=== PATIENT | male | born 1990 | race Caucasian/White ===

== ENCOUNTER 2021-02-12 12:25 | Emergency (ER) | payer OTHER ==
--- NOTE | 2021-02-12 13:46 | ED Physician Documentation ---
History of Present Illness - Stated complaint Stated Complaint: RIGHT EYE SWELLING & PX - Chief complaint Chief Complaint: Heent - History obtained from History obtained from: Patient - History of Present Illness Timing: How many days ago (2) - Additonal information Additional information: Patient is a 30-year-old male who noted swelling to the right upper eyelid starting 2 days ago. Has continued since that time. Denies any trauma. Does not wear contacts. Nothing makes it better or worse. No vision changes. No conjunctival injection, tearing or drainage. No FB. Review of Systems Constitutional: denies: Fever, Chills GI: denies: Vomiting PD PAST MEDICAL HISTORY - Past Medical History Past Medical History: No Cardiovascular: None Respiratory: None Neuro: None Endocrine/Autoimmune: None GI: None : None HEENT: None Psych: None Musculoskeletal: None Derm: None - Past Surgical History Past Surgical History: Yes Ortho: Other HEENT: Rhinoplasty - Present Medications Home Medications: Ambulatory Orders Medication Instructions Recorded Confirmed No Known Home Medications 02/12/21 02/12/21 - Allergies Allergies/Adverse Reactions: Allergies Allergy/AdvReac Type Severity Reaction Status Date / Time No Known Drug Allergies Allergy Verified 02/12/21 12:32 - Social History Does the pt smoke?: Yes Smoking Status: Current every day smoker Does the pt drink ETOH?: No Does the pt have substance abuse?: No PD ED PE NORMAL - Vitals Vital signs reviewed: Yes - General General: Alert and oriented X 3, No acute distress - HEENT HEENT: Moist mucous membranes, Other (L upper eyelid, mild swelling and erythema. o/w normal exam. ) - Derm Derm: Warm and dry - Neuro Neuro: Alert and oriented X 3 Results - Vitals Vitals: Vital Signs - 24 hr 02/12/21 12:28 Temperature 36.2 C L Heart Rate 68 Respiratory 16 Rate Blood Pressure 128/64 O2 Saturation 97 Oxygen O2 Source Room air PD MEDICAL DECISION MAKING - ED course Complexity details: considered differential, d/w patient ED course: Patient with a small stye. Will apply warm compresses at home and follow-up with his doctor as needed. No indication for antibiotics at this time. Patient counseled regarding signs and symptoms for which I believe and urgent re- evaluation would be necessary. Patient with good understanding of and agreement to plan and is comfortable going home at this time This document was made in part using voice recognition software. While efforts are made to proofread this document, sound alike and grammatical errors may occur. Departure - Departure Disposition: 01 Home, Self Care Clinical Impression: Stye Qualifiers: Laterality: right Eyelid: upper Qualified Code(s): H00.011 - Hordeolum externum right upper eyelid Condition: Good Instructions: ED Hordeolum Follow-Up: your,doctor as needed [Other] Comments: Please apply warm compresses 3-4 times daily for about 10 minutes at a time to your eyelid. This will help the lesion to drain. Gentle massage may help as well. Return if you worsen. This should improve over the next few days.
[2021-02-12 13:53] VITALS: BP 122/74
== END 2021-02-12 13:53 | disposition home or self-care (01) ==
LOC: ED 12:25
DX: H00.011 Hordeolum externum right upper eyelid (principal); F17.200 Nicotine dependence, unspecified, uncomplicated
CPT/HCPCS: 99281

== ENCOUNTER 2022-07-02 13:11 | Emergency (ER) | payer OTHER ==
[2022-07-02 13:25] VITALS: BP 148/90
--- NOTE | 2022-07-02 13:52 | XRAY Report ---
PROCEDURE: Chest 2 View X-Ray INDICATIONS: cough TECHNIQUE: 2 views of the chest were acquired. COMPARISON: 02/16/2022 FINDINGS: Surgical changes and devices: None. Lungs and pleura: No pleural effusions or pneumothorax. Lungs are clear. Mediastinum: Mediastinal contours are normal. Heart size is normal. Bones and chest wall: No suspicious bony abnormalities. Soft tissues appear unremarkable. IMPRESSION: Normal two-view chest x-ray Reviewed by: Patrice Cisneros MD on 07/02/2022 12:50 PM [facility] Approved by: Patrice Cisneros MD on 07/02/2022 12:50 PM [facility] Station ID: [id number]
[2022-07-02] MEDS ORDERED: ONDANSETRON ODT 4 MG TABLET TL STA (14:55)
--- NOTE | 2022-07-02 15:17 | ED Physician Documentation ---
History of Present Illness - Stated complaint Stated Complaint: COUGHING/CONGESTION - Chief complaint Chief Complaint: Resp - History obtained from History obtained from: Patient - Additonal information Additional information: The patient comes to the emergency department chief complaint of headache, sore throat, nasal congestion, chills, and cough over the last 2-1/2 weeks. He states he was initially ill but then seemed like he was getting better. However, he had a resurgence of symptoms several days ago and states he is concerned because he has missed some at work. He states that he is now also nauseated and vomiting. The patient has tested negative for COVID prior to coming in. He denies any specific sick contacts, but does work with other people and has been out in public. He states he is otherwise healthy. No other complaints at this time. Review of Systems Constitutional: reports: Reviewed and negative Eyes: reports: Reviewed and negative Ears: reports: Reviewed and negative Nose: reports: Rhinorrhea / runny nose, Congestion Throat: reports: Sore throat Cardiac: reports: Reviewed and negative Respiratory: reports: Cough. denies: Dyspnea GI: reports: Nausea, Vomiting : reports: Reviewed and negative Skin: reports: Reviewed and negative Musculoskeletal: reports: Reviewed and negative Neurologic: reports: Headache Psychiatric: reports: Reviewed and negative Endocrine: reports: Reviewed and negative Immunocompromised: reports: Reviewed and negative PD PAST MEDICAL HISTORY - Past Medical History Cardiovascular: None Respiratory: None Neuro: None Endocrine/Autoimmune: None GI: None : None HEENT: None Psych: None Musculoskeletal: None Derm: None - Past Surgical History Past Surgical History: Yes Ortho: Other HEENT: Rhinoplasty - Present Medications Home Medications: Ambulatory Orders Medication Instructions Recorded Confirmed Acetaminophen/Cod 300/30 [Tylenol 2 each PO Q4-6H PRN #20 tablet 07/02/22 #3] Ondansetron Odt [Zofran] 4 mg TL Q6H PRN #14 tablet 07/02/22 - Allergies Allergies/Adverse Reactions: Allergies Allergy/AdvReac Type Severity Reaction Status Date / Time No Known Drug Allergies Allergy Verified 02/16/22 13:16 - Social History Does the pt smoke?: Yes Smoking Status: Current every day smoker Does the pt drink ETOH?: No Does the pt have substance abuse?: No PD ED PE NORMAL - Vitals Vital signs reviewed: Yes - General General: Alert and oriented X 3, No acute distress, Well developed/nourished - HEENT HEENT: Atraumatic, PERRL, EOMI, Moist mucous membranes, Pharynx benign - Neck Neck: Supple, no meningeal sign - Cardiac Cardiac: RRR, No murmur, Strong equal pulses - Respiratory Respiratory: No respiratory distress, Clear bilaterally - Abdomen Abdomen: Soft, Non tender, Non distended - Derm Derm: Normal color, Warm and dry, No rash - Extremities Extremities: No deformity, No edema, No calf tenderness / cord - Neuro Neuro: Alert and oriented X 3, 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 parapertussis DNA (PCR) NOT DETECTED Nasal Coronavir 229E PCR NOT DETECTED Nasal Coronavir HKU1 PCR NOT DETECTED Nasal Coronavir NL63 PCR NOT DETECTED Nasal Coronavir OC43 PCR NOT DETECTED Nasal Enterovir/Rhinovir PCR NOT DETECTED Nasal Influenza B PCR NOT DETECTED Nasal Influenza A PCR NOT DETECTED Nasal Parainfluen 1 PCR NOT DETECTED Nasal Parainfluen 2 PCR NOT DETECTED Nasal Parainfluen 3 PCR NOT DETECTED Nasal Parainfluen 4 PCR NOT DETECTED Nasal RSV (PCR) NOT DETECTED Nasal B.pertussis DNA PCR NOT DETECTED Nasal C.pneumoniae (PCR) NOT DETECTED Le[place] Human Metapneumo PCR NOT DETECTED Nasal M.pneumoniae (PCR) NOT DETECTED Nasal SARS-CoV-2 (PCR) NOT DETECTED - Rads (name of study) Chest x-ray Radiology: Final report received, See rad report (Negative) PD Medical Decision Making - ED course Complexity details: reviewed results, re-evaluated patient, considered differential, d/w patient ED course: The patient overall looked fairly well, and I discussed symptomatic management with him. The patient has a clear chest x-ray and exam is unremarkable, and I suspect a viral syndrome. He has been given a dose of ODT Zofran. I have sent prescriptions for both Zofran and Tylenol 3 to the pharmacy of his choice. A respiratory PCR has been obtained and is pending at this time. Departure - Departure Disposition: 01 Home, Self Care Clinical Impression: Acute viral syndrome Condition: Stable Instructions: ED Viral Syndrome Prescriptions: Acetaminophen/Cod 300/30 [Tylenol #3] 2 each PO Q4-6H PRN #20 tablet PRN Reason: Pain Ondansetron Odt [Zofran] 4 mg TL Q6H PRN #14 tablet PRN Reason: Nausea / Vomiting Comments: Your chest x-ray looks good today. Your symptoms are consistent with one of the many viral illnesses that are going around right now. It is likely that you started with some other virus, and once knocked down from being sick at that, picked up something else. Your heart sounds good and your lungs are clear. Your throat does not have the appearance of strep. Your vital signs look good and there is no evidence of a more serious illness, despite the misery that your current illness is causing you. A prescription for medication for nausea and for both the pain and cough has been electronically transmitted to [facility] pharmacy in [place]. The Tylenol with codeine can be taken for either your cough or your neck pain, and you can also take ibuprofen 600 mg every 6 hours. Please drink plenty of fluids and stay home this week to allow yourself to rest. Forms: Activity restrictions Discharge Date/Time: 07/02/22 15:29
[2022-07-02 15:37] LABS: B. PARAPERTUSSIS- RESP PCR PAN NOT DETECTED; B. PERTUSSIS- RESP PCR PANEL NOT DETECTED; C. PNEUMONIAE- RESP PCR PANEL NOT DETECTED; CORONAVIRUS 229E-RESP PCR NOT DETECTED; CORONAVIRUS HKU1-RESP PCR NOT DETECTED; CORONAVIRUS NL63-RESP PCR NOT DETECTED; CORONAVIRUS OC43-RESP PCR NOT DETECTED; HUMAN METAPNEUMOVIRUS NOT DETECTED; INFLUENZA A- RESP PCR PANEL NOT DETECTED; INFLUENZA B - RESP PCR PANEL NOT DETECTED; M. PNEUMONIAE- RESP PCR PANEL NOT DETECTED; PARAINFLUENZA VIRUS 1 NOT DETECTED; PARAINFLUENZA VIRUS 2 NOT DETECTED; PARAINFLUENZA VIRUS 3 NOT DETECTED; PARAINFLUENZA VIRUS 4 NOT DETECTED; RHINOVIRUS/ENTEROVIRUS NOT DETECTED; RSV- RESP PCR PANEL NOT DETECTED; SARS-CoV-2 -RESP PCR PANEL NOT DETECTED
== END 2022-07-02 15:29 | disposition home or self-care (01) ==
LOC: ED 13:11
DX: B34.9 Viral infection, unspecified (principal); F17.200 Nicotine dependence, unspecified, uncomplicated; Z20.822 Contact with and (suspected) exposure to COVID-19
CPT/HCPCS: 71046; 87633; 99283; 99284; Q0162

== ENCOUNTER 2022-11-18 13:10 | Emergency (ER) | payer OTHER ==
[2022-11-18] MEDS ORDERED: HYDROmorphone 1 MG/ML CARPUJECT IM STA (14:20)
[2022-11-18] MEDS ORDERED: KETOROLAC 60 MG/2 ML VIAL IM STA (14:20)
--- NOTE | 2022-11-18 14:21 | ED Physician Documentation ---
History of Present Illness - Stated complaint Stated Complaint: RT SIDE PX - Chief complaint Chief Complaint: General - History obtained from History obtained from: Patient - Additonal information Additional information: 32-year-old gentleman with history of asthma, otherwise healthy. He was carrying a large box today and slipped and fell backwards and the box fell on his right side injuring his low lateral right ribs, mid back and right hip. No head or neck injury. He is able to walk and bear weight albeit gingerly. Has not tried anything yet for pain. This happened around 9 AM today. PD PAST MEDICAL HISTORY - Past Medical History Cardiovascular: None Respiratory: None Neuro: None Endocrine/Autoimmune: None GI: None : None HEENT: None Psych: None Musculoskeletal: None Derm: None - Past Surgical History Past Surgical History: Yes Ortho: Other HEENT: Rhinoplasty - Present Medications Home Medications: Ambulatory Orders Medication Instructions Recorded Confirmed HYDROcod/ACETAM 5/325 [Allison 5/325] 1 - 2 tab PO Q6H PRN #15 tablet 11/18/22 Ibuprofen [Motrin] 800 mg PO Q8H PRN #30 tablet 11/18/22 - Allergies Allergies/Adverse Reactions: Allergies Allergy/AdvReac Type Severity Reaction Status Date / Time No Known Drug Allergies Allergy Verified 07/22/22 09:26 - Social History Does the pt smoke?: Yes Smoking Status: Current every day smoker Does the pt drink ETOH?: No Does the pt have substance abuse?: No - Immunizations Immunizations are current?: Yes PD ED PE NORMAL - Vitals Vital signs reviewed: Yes - General General: Alert and oriented X 3, No acute distress - Neck Neck: Supple, no meningeal sign, No bony TTP - Respiratory Respiratory: No respiratory distress, Other (Mild tenderness of right lower lateral ribs, no corresponding abdominal tenderness.) - Back Back: Other (Tender to the lower lumbar spine) - Derm Derm: Normal color, Warm and dry - Extremities Extremities: Other (Moderate tenderness of the right hip, no deformity.) - Neuro Neuro: Alert and oriented X 3, Normal speech Results - Vitals Vitals: Vital Signs - 24 hr 11/18/22 11/18/22 13:15 16:36 Temperature 36.4 C L 36.8 C Heart Rate 66 53 L Respiratory 18 20 Rate Blood Pressure 127/94 H 111/57 L O2 Saturation 98 99 Oxygen O2 Source Room air - Rads (name of study) Right hip x-ray, chest CT without contrast, and lumbar spine CT were negative for traumatic findings. Relevant Findings:: Final report received, EMP independent interpretation of test PD Medical Decision Making - ED course ED course: 32-year-old gentleman had a fall with a large box landing on him and has hip, back, and right rib pain. Relevant imaging was negative. After the administration of 1 mg of IM Hydromorphone and 60 mg of IM Toradol his pain was controlled, not gone but he was satisfied with the pain relief. Departure - Departure Disposition: Home, Self Care Clinical Impression: Chest wall contusion Qualifiers: Encounter type: initial encounter Laterality: right Qualified Code(s): S20.211A - Contusion of right front wall of thorax, initial encounter Back strain Qualifiers: Encounter type: initial encounter Qualified Code(s): S39.012A - Strain of muscle, fascia and tendon of lower back, initial encounter Contusion of right hip Qualifiers: Encounter type: initial encounter Qualified Code(s): S70.01XA - Contusion of right hip, initial encounter Condition: Good Instructions: ED Low Back Pain Injury, ED Contusion Soft Tissue, ED Contusion Chest Wall Prescriptions: Ibuprofen [Motrin] 800 mg PO Q8H PRN #30 tablet PRN Reason: PAIN &/OR FEVER HYDROcod/ACETAM 5/325 [Allison 5/325] 1 - 2 tab PO Q6H PRN #15 tablet PRN Reason: Pain Comments: [facility] [place]. Right hip x-ray, lumbar spine CT and CT of the ribs and chest were negative for serious injuries. That said I do expect you to be fairly sore for the next few days and improving after that. Heat and gentle stretching would be appropriate as well. Return if worse. Follow-up with your doctor in about a week for recheck. I am prescribing a short course of narcotic pain medication for you. These are potentially dangerous and addictive medications that should be used carefully. These medications may constipate you. Take an [id number] stool softener (docusate) twice daily with plenty of water while taking these medications. If you go 24 hours without a bowel movement, take [id number]-nys-[id number] miralax, per package instructions. Do not drink or drive while taking these medications. If you received narcotic or sedating medications while in the emergency department, do not drive for 24 hours. Store this medication in a safe, secure place and out of reach of children. It is a violation of federal law to give or sell this medication to another person or to use in a manner other than prescribed. The ED will not refill narcotic prescriptions, including prescriptions lost or stolen. To dispose of unwanted medications: 1. [facility] at [address] in [place] has a medication drop box. They accept prescription medications (in pill form) Sunday through Sunday 9:00 a.m. to 5:00 p.m. 2. The [facility] [employer] accepts prescription medications (in pill form only) for disposal year round. Call for more information. 3. Contact the [facility] for the next [facility] sponsored prescription drug collection event. , [phone], or [phone]; Note that many narcotic pain relievers also contain Tylenol/acetaminophen. Please ensure that your total dose of acetaminophen from all sources does not exceed 3 g (3000 mg) per day. Discharge Date/Time: 11/18/22 16:36
--- NOTE | 2022-11-18 14:47 | XRAY Report ---
PROCEDURE: Hip w/Pelvis 2-3V RT INDICATIONS: FALL, CHEST, BACK, HIP INJ TECHNIQUE: AP pelvis with lateral view(s) of the right hip(s). COMPARISON: None. FINDINGS: Bones: No fractures or dislocations. No suspicious bony lesions. Soft tissues: No suspicious soft tissue calcifications or masses. IMPRESSION: No pelvic or hip fractures visible. Reviewed by: Charlee Sexton MD on 11/18/2022 1:46 PM [facility] Approved by: Charlee Sexton MD on 11/18/2022 1:46 PM [facility] Station ID: [id number]
--- NOTE | 2022-11-18 16:17 | CT Report ---
PROCEDURE: CHEST WO INDICATIONS: FALL, CHEST, BACK, HIP INJ TECHNIQUE: Noncontrast 1mm axial images were acquired from the pulmonary apices to the posterior costophrenic an gles. Axial 5 mm soft tissue kernel reconstructions were performed as well as 8 mm axial MIP and cor onal and sagittal 5 mm reformations. For radiation dose reduction, the following was used: automate d exposure control, adjustment of mA and/or kV according to patient size. COMPARISON: Chest x-ray 07/02/2022 FINDINGS: Image quality: Excellent. Lungs and pleura: Central and peripheral airways are patent. No pneumothorax or pleural effusion. Inc idental note of tiny subpleural cyst in the left lower lobe. There are no parenchymal contusions or c onsolidations. No suspicious nodules which require follow-up. Mediastinum: Heart size is normal. No pericardial effusions. No mediastinal adenopathy by size criter ia. No large vessel abnormality. Chest wall and lower neck: Thyroid is unremarkable. No axillary or supraclavicular adenopathy by size . Bones: No rib, sternal, spinal, or clavicular fractures. No visible scapular fractures. Upper Abdomen: Unremarkable. IMPRESSION: 1. No CT evidence of chest trauma. Reviewed by: Charlee Sexton MD on 11/18/2022 3:16 PM [facility] Approved by: Charlee Sexton MD on 11/18/2022 3:16 PM [facility] Station ID: [id number]
--- NOTE | 2022-11-18 16:19 | CT Report ---
PROCEDURE: LUMBAR SPINE WO INDICATIONS: FALL, CHEST, BACK, HIP INJ TECHNIQUE: Noncontrast 3 mm thick sections acquired from the T12 level to the sacrum. Sagittal and coronal refo rmats were constructed. For radiation dose reduction, the following was used: automated exposure co ntrol, adjustment of mA and/or kV according to patient size. COMPARISON: None. FINDINGS: Image quality: Excellent. Bones: There is normal bony alignment. No acute vertebral body compression fractures. No suspiciou s lytic or blastic bony lesions. Central spinal caliber is of normal overall caliber. No pars defec ts. T12-L1: Normal in appearance. L1-L2: Normal in appearance. L2-L3: Normal in appearance. L3-L4: Normal in appearance. L4-L5: Normal in appearance. L5-S1: Normal in appearance. Soft tissues: No retroperitoneal masses or hematomas. Visualized aorta is normal in caliber. IMPRESSION: No CT evidence of acute lumbar injury. Reviewed by: Charlee Sexton MD on 11/18/2022 3:17 PM [facility] Approved by: Charlee Sexton MD on 11/18/2022 3:17 PM [facility] Station ID: [id number]
[2022-11-18 16:39] VITALS: BP 111/57
== END 2022-11-18 16:36 | disposition home or self-care (01) ==
LOC: ED 13:10
DX: S20.211A Contusion of right front wall of thorax, initial encounter (principal); S39.012A Strain of muscle, fascia and tendon of lower back, initial encounter; S70.01XA Contusion of right hip, initial encounter; W22.8XXA Striking against or struck by other objects, initial encounter; Y93.89 Activity, other specified; F17.200 Nicotine dependence, unspecified, uncomplicated
CPT/HCPCS: 71250; 72131; 73502; 96372; 99284; J1170

== ENCOUNTER 2022-11-29 16:31 | Emergency (ER) | payer OTHER ==
[2022-11-29 17:08] LABS: BASOPHILS # (AUTO) 0.1 10^3/uL (0.0-0.1); BASOPHILS % (AUTO) 0.7 %; EOSINOPHILS # (AUTO) 0.2 10^3/uL (0.0-0.7); EOSINOPHILS % (AUTO) 1.6 %; HGB - HEMOGLOBIN 15.5 g/dL (14.0-18.0); LYMPHOCYTES # (AUTO) 4.5 10^3/uL (1.5-3.5); LYMPHOCYTES % (AUTO) 33.3 %; MEAN CORPUSCULAR HEMOGLOBIN 28.5 pg (27.0-31.0); MEAN CORPUSCULAR VOLUME 86.4 fL (80.0-94.0); MEAN PLATELET VOLUME 10.6 fL (7.4-11.4); MONOCYTES # (AUTO) 0.8 10^3/uL (0.0-1.0); MONOCYTES % (AUTO) 5.6 %; NEUTROPHILS % (AUTO) 58.4 %; PLT - PLATELET COUNT 320 10^3/uL (130-450); RED BLOOD COUNT 5.44 10^6/uL (4.70-6.10); RED CELL DISTRIBUTION WIDTH 13.1 % (12.0-15.0); WHITE BLOOD COUNT 13.6 x10^3/uL (4.8-10.8)
--- NOTE | 2022-11-29 17:23 | ED Physician Documentation ---
History of Present Illness - Stated complaint Stated Complaint: RT LEG NUMB - Chief complaint Chief Complaint: General - Additonal information Additional information: 32-year-old male comes to the emergency department on the advice of [facility] for evaluation of saddle anesthesia. Seen by my colleague on 18 November after a fall and right-sided pain. At that time CT of the lumbar spine was unremarkable. Patient reports that since discharge from the emergency department he has had persistent pain in the low back. This morning he had some numbness of the entire right leg though no weakness. He also noticed that his right scrotum was very numb. He has had no loss of bowel or bladder function. He has normal rectal tone. He is currently taking Flexeril and ibuprofen for pain. Review of Systems Constitutional: reports: Reviewed and negative Cardiac: reports: Reviewed and negative Respiratory: reports: Reviewed and negative : reports: Other (Right scrotum numbness) Skin: reports: Reviewed and negative Musculoskeletal: reports: Back pain PD PAST MEDICAL HISTORY - Past Medical History Past Medical History: No Cardiovascular: None Respiratory: None Neuro: None Endocrine/Autoimmune: None GI: None : None HEENT: None Psych: None Musculoskeletal: None Derm: None - Past Surgical History Past Surgical History: Yes Ortho: Other HEENT: Rhinoplasty - Present Medications Home Medications: Ambulatory Orders Medication Instructions Recorded Confirmed HYDROcod/ACETAM 5/325 [[place] 5/325] 1 - 2 tab PO Q6H PRN #15 tablet 11/18/22 Ibuprofen [Motrin] 800 mg PO Q8H PRN #30 tablet 11/18/22 - Allergies Allergies/Adverse Reactions: Allergies Allergy/AdvReac Type Severity Reaction Status Date / Time No Known Drug Allergies Allergy Verified 11/29/22 16:49 - Social History Does the pt smoke?: Yes Smoking Status: Current every day smoker Does the pt drink ETOH?: No Does the pt have substance abuse?: No - Immunizations Immunizations are current?: Yes PD ED PE NORMAL - General General: Alert and oriented X 3, No acute distress - Cardiac Cardiac: RRR, No murmur - Respiratory Respiratory: Clear bilaterally - Abdomen Abdomen: Normal bowel sounds, Soft, Non tender, Non distended - Male Male : Other (Patient has numbness of the right scrotum. No numbness of the penis or the perianal area otherwise.) - Rectal Rectal: Other (Normal rectal tone and weak.) - Back Back: No spinal TTP (Midline lower lumbar tenderness from about L4 all the way down to the sacral region. Full forward flexion.) - Derm Derm: Normal color, Warm and dry, No rash - Extremities Extremities: No deformity, Other (Motor strength is 5 of 5 bilateral lower extremities.) - Neuro Neuro: Alert and oriented X 3 Eye Opening: Spontaneous Motor: Obeys Commands Verbal: Oriented GCS Score: 15 Results - Vitals Vitals: Vital Signs - 24 hr 11/29/22 16:45 Temperature 35.7 C L Heart Rate 59 L Respiratory 16 Rate Blood Pressure 117/72 O2 Saturation 100 Oxygen O2 Source Room air - Labs Labs: Laboratory Tests 11/29/22 11/29/22 17:01 17:01 WBC 13.6 H RBC 5.44 Hgb 15.5 Hct 47.0 MCV 86.4 MCH 28.5 MCHC 33.0 RDW 13.1 Plt Count 320 MPV 10.6 Neut # (Auto) 8.0 H Lymph # (Auto) 4.5 H [place] # (Auto) 0.8 Eos # (Auto) 0.2 Baso # (Auto) 0.1 Absolute Nucleated RBC 0.00 Nucleated RBC % 0.0 Sodium 140 Potassium 4.2 Chloride 106 Carbon Dioxide 29 Anion Gap 5.0 L BUN 17 Creatinine 0.9 Estimated GFR (MDRD) 97 Glucose 90 Calcium 9.1 Total Bilirubin 0.5 AST 20 ALT 28 Alkaline Phosphatase 56 Total Protein 7.7 Albumin 4.0 Globulin 3.7 Albumin/Globulin Ratio 1.1 Lipase 29 - Rads (name of study) MRI lumbar spine Relevant Findings:: Final report received (Normal lumbar spine MRI) PD Medical Decision Making - ED course Complexity details: reviewed results, considered differential, d/w patient ED course: 32-year-old female presents emergency department for evaluation of right scrotal numbness that he noted this morning. It was also associated with right leg numbness. This gentleman had a fall about 2 weeks ago. Seen initially in this emergency department and had a CT scan completed of the lumbar spine that showed no acute injuries. Over time he is continue to take ibuprofen and Flexeril without improvement in symptoms. Today he woke up and had numbness in the right leg that fully resolved. He never had motor weakness. But is also noticed numbness in the right scrotum. On exam there is numbness in the right scrotum but none within the perianal area otherwise. No penile numbness. He has normal rectal tone. However given some degree of saddle anesthesia we did obtain an MRI of the lumbar spine that showed no findings to suggest fracture or spinal cord impingement or cauda equina. At this time the patient is stable for discharge home. [place] The usual emergent return precautions otherwise discussed Departure - Departure Disposition: , Self Care Clinical Impression: Numbness Low back pain Qualifiers: Chronicity: acute Back pain laterality: midline Sciatica presence: without sciatica Qualified Code(s): M54.50 - Low back pain, unspecified Condition: Stable Record reviewed to determine appropriate education?: Yes Comments: You are seen today in the emergency department because you continue to have back pain after your fall. Today you develop numbness in the right leg that resolved but you continue to have numbness in your right scrotum. Your neurological exam today in the emergency department was otherwise normal. We did do an MRI of the lumbar spine that did not show anything to suggest spinal fractures, spinal cord impingement or condition called cauda equina. Continue to follow-up with your primary care doctor. You can continue to take the Flexeril and ibuprofen that has already been prescribed.
[2022-11-29 17:24] LABS: ALBUMIN/GLOBULIN RATIO 1.1 (1.0-2.2); BILIRUBIN,TOTAL 0.5 mg/dL (0.2-1.0); CALCIUM 9.1 mg/dL (8.5-10.3); CREATININE 0.9 mg/dL (0.6-1.2); POTASSIUM 4.2 mmol/L (3.5-5.0); TOTAL PROTEIN 7.7 g/dL (6.7-8.2)
--- NOTE | 2022-11-29 20:03 | MRI Report ---
PROCEDURE: LUMBAR SPINE WO INDICATIONS: Fall from ladder, saddle anesthesia. TECHNIQUE: Noncontrast sagittal T1 spin echo and T2 fast echo, sagittal STIR, axial T1 and T2 fast spin echo thr ough the lumbar spine. In cases with scoliosis, additional coronal T2 fast spin echo may be performe d. COMPARISON: CT lumbar spine 11/18/2022. FINDINGS: Image quality: Excellent. Alignment and Curvature: There is normal bony alignment. Bone Marrow: Marrow is of normal overall signal. No acute vertebral body compression fractures. Spinal Cord: Conus medullaris terminates at the L1 level. Visualized cord demonstrates normal signa l and size. Paraspinous Soft Tissues: No paravertebral masses. T12-L1: Normal in appearance. L1-L2: Normal in appearance. L2-L3: Normal in appearance. L3-L4: Normal in appearance. L4-L5: Normal in appearance. L5-S1: Normal in appearance. IMPRESSION: Normal lumbar spine MRI. Reviewed by: Reginaldo Castillo MD on 11/29/2022 8:02 PM PDT Approved by: Reginaldo Castillo MD on 11/29/2022 8:02 PM PDT Station ID: [id number]
[2022-11-29 20:43] VITALS: BP 122/78
== END 2022-11-29 20:41 | disposition home or self-care (01) ==
LOC: ED 16:31
DX: M54.50 Low back pain, unspecified (principal); R20.0 Anesthesia of skin; F17.200 Nicotine dependence, unspecified, uncomplicated
CPT/HCPCS: 36415; 80053; 83690; 85025; 99283; 99284

== ENCOUNTER 2023-02-07 04:21 | Emergency (ER) | payer OTHER ==
[2023-02-07] MEDS ORDERED: KETOROLAC 30 MG/ML VIAL IVP STA (04:36)
[2023-02-07 04:56] LABS: BASOPHILS # (AUTO) 0.1 10^3/uL (0.0-0.1); BASOPHILS % (AUTO) 0.8 %; EOSINOPHILS # (AUTO) 0.3 10^3/uL (0.0-0.7); EOSINOPHILS % (AUTO) 2.2 %; HCT - HEMATOCRIT 43.9 % (42.0-52.0); HGB - HEMOGLOBIN 14.9 g/dL (14.0-18.0); LYMPHOCYTES # (AUTO) 4.5 10^3/uL (1.5-3.5); LYMPHOCYTES % (AUTO) 38.9 %; MEAN CORPUSCULAR HEMOGLOBIN 28.6 pg (27.0-31.0); MEAN CORPUSCULAR HGB CONC 33.9 g/dL (32.0-36.0); MEAN CORPUSCULAR VOLUME 84.3 fL (80.0-94.0); MONOCYTES # (AUTO) 0.8 10^3/uL (0.0-1.0); MONOCYTES % (AUTO) 7.2 %; NEUTROPHILS # (AUTO) 5.8 10^3/uL (1.5-6.6); PLT - PLATELET COUNT 272 10^3/uL (130-450); RED BLOOD COUNT 5.21 10^6/uL (4.70-6.10); RED CELL DISTRIBUTION WIDTH 13.3 % (12.0-15.0); WHITE BLOOD COUNT 11.6 x10^3/uL (4.8-10.8)
--- NOTE | 2023-02-07 05:02 | ED Physician Documentation ---
History of Present Illness - Stated complaint Stated Complaint: RT RIB PX - Chief complaint Chief Complaint: General - History obtained from History obtained from: Patient - Additonal information Additional information: . He is also advised on strict return precautions for any worsening symptoms. Patient is a 32-year-old male with no significant prior medical history presenting for evaluation of right-sided pain that has been present since last night around 10:00. Patient states that it came on pretty quickly and it feels sharp. Certain movements make it worse. It does wrap around to the back at times. No fever, chest pain, shortness of air, vomiting, diarrhea. Denies issues with urination. Denies recent trauma or injury. Does not take a blood thinner. Review of Systems Constitutional: denies: Fever Respiratory: denies: Dyspnea GI: denies: Vomiting, Diarrhea Neurologic: denies: Headache PD PAST MEDICAL HISTORY - Past Medical History Cardiovascular: None Respiratory: None Neuro: None Endocrine/Autoimmune: None GI: None : None HEENT: None Psych: None Musculoskeletal: None Derm: None - Past Surgical History Past Surgical History: Yes Ortho: Other HEENT: Rhinoplasty - Present Medications Home Medications: Ambulatory Orders Medication Instructions Recorded Confirmed HYDROcod/ACETAM 5/325 [[place] 5/325] 1 - 2 tab PO Q6H PRN #15 tablet 11/18/22 Ibuprofen [Motrin] 800 mg PO Q8H PRN #30 tablet 11/18/22 Ondansetron Odt [Zofran] 4 mg TL Q6H PRN #10 tablet 02/07/23 Oxycodone HCl/Acetaminophen 1 each PO Q6H PRN #12 tablet 02/07/23 [Percocet 5-325 mg Tablet] - Allergies Allergies/Adverse Reactions: Allergies Allergy/AdvReac Type Severity Reaction Status Date / Time No Known Drug Allergies Allergy Verified 02/07/23 04:33 - Social History Does the pt smoke?: Yes Smoking Status: Current every day smoker Does the pt drink ETOH?: No Does the pt have substance abuse?: No - Immunizations Immunizations are current?: Yes PD ED PE NORMAL - General General: Alert and oriented X 3, No acute distress, Well developed/nourished - HEENT HEENT: Atraumatic, Moist mucous membranes, Pharynx benign - Neck Neck: Supple, no meningeal sign - Cardiac Cardiac: RRR, No murmur, Strong equal pulses, Other (No rash or crepitus to chest wall) - Respiratory Respiratory: No respiratory distress, Clear bilaterally - Abdomen Abdomen: Normal bowel sounds, Soft, Non distended, Other (Epigastric tenderness; mild tenderness to RUQ, negative [place]) - Back Back: No CVA TTP - Extremities Extremities: No calf tenderness / cord - Neuro Neuro: Normal speech Results - Vitals Vitals: Vital Signs - 24 hr 02/07/23 02/07/23 04:31 07:11 Temperature 36.2 C L Heart Rate 76 60 Respiratory 26 H 20 Rate Blood Pressure 137/94 H 134/93 H O2 Saturation 99 98 Oxygen O2 Source Room air - EKG (time done) 0514 EKG releavant findings:: EKG personally interpreted by author of this note. Relevant findings are: Rate 69, normal sinus rhythm, no STEMI, small T wave inversions in lead III, no prior for comparison Rate: Rate (enter#) (69) Rhythm: NSR Intervals: No: Prolonged QT Ischemia: No: ST elevation c/w ischemia Compare to prior EKG: Old EKG unavailable - Labs Labs: Laboratory Tests 02/07/23 02/07/23 02/07/23 04:05 04:05 05:46 WBC 11.6 H RBC 5.21 Hgb 14.9 Hct 43.9 MCV 84.3 MCH 28.6 MCHC 33.9 RDW 13.3 Plt Count 272 MPV 11.0 Neut # (Auto) 5.8 Lymph # (Auto) 4.5 H [place] # (Auto) 0.8 Eos # (Auto) 0.3 Baso # (Auto) 0.1 Absolute Nucleated RBC 0.00 Nucleated RBC % 0.0 Sodium 140 Potassium 3.9 Chloride 105 Carbon Dioxide 29 Anion Gap 6.0 BUN 14 Creatinine 0.9 Estimated GFR (MDRD) 97 Glucose 107 H Calcium 9.4 Total Bilirubin 0.2 AST 13 ALT 23 Alkaline Phosphatase 74 Total Protein 6.9 Albumin 4.2 Globulin 2.7 Albumin/Globulin Ratio 1.6 Lipase 30 Urine Color YELLOW Urine Clarity CLEAR Urine pH 5.5 Ur Specific [place] >=1.030 H Urine Protein NEGATIVE Urine Glucose (UA) NEGATIVE Urine Ketones NEGATIVE Urine Occult Blood MODERATE H Urine Nitrite NEGATIVE Urine Bilirubin NEGATIVE Urine Urobilinogen 0.2 (NORMAL) Ur Leukocyte Esterase NEGATIVE Urine RBC 0-5 Urine WBC 0-3 Ur Squamous Epith Cells RARE Squamous Urine Bacteria None Seen Ur Microscopic Review INDICATED Urine Culture Comments NOT INDICATED PD Medical Decision Making - ED course Complexity details: reviewed results, re-evaluated patient ED course: Pt with R sided abdominal pain since last night. Mild tenderness noted on exam. EKG is non ischemic. No CP or chest wall tenderness. CBC, Chemistries without significant findings. UA negative for infection. Chest XR negative for pneumothorax or free air. Ct abd/pelvis with gastritis but no other findings. Pt feeling better after IV toradol, IV morphine, zofran and fluids. Counseled on continued supportive care as well as strict return precautions. pt also to follow up at [facility]. Departure - Departure Disposition: 01 Home, Self Care Clinical Impression: Right sided abdominal pain Condition: Stable Instructions: ED Abdominal Pain Unkn Cause Male Follow-Up: ARE[facility] Ordoñez [Provider Group] Prescriptions: Oxycodone HCl/Acetaminophen [Percocet 5-325 mg Tablet] 1 each PO Q6H PRN #12 tablet PRN Reason: pain Ondansetron Odt [Zofran] 4 mg TL Q6H PRN #10 tablet PRN Reason: Nausea / Vomiting Comments: You were evaluated for right-sided abdominal pain. Your labs are reassuring and your x-ray is clear of your lungs. We did obtain a CT scan of your abdomen pelvis which also does not reveal an explanation for your pain. I have sent a prescription for small amount of pain and nausea medications to the [facility] pharmacy in [place]. I also recommend close follow-up with your primary care at the [facility]. If you develop any new or worsening symptoms please consider return to the emergency department. I am prescribing a short course of narcotic pain medication for you. These are potentially dangerous and addictive medications that should be used carefully. These medications may constipate you. Take an [id number] stool softener (docusate) twice daily with plenty of water while taking these medications. If you go 24 hours without a bowel movement, take [id number] miralax, per package instructions. Do not drink or drive while taking these medications. If you received narcotic or sedating medications while in the emergency department, do not drive for 24 hours. Store this medication in a safe, secure place and out of reach of children. It is a violation of federal law to give or sell this medication to another person or to use in a manner other than prescribed. The ED will not refill narcotic prescriptions, including prescriptions lost or stolen. To dispose of unwanted medications: 1. [facility] at [address] in [place] has a medication drop box. They accept prescription medications (in pill form) Sunday through Sunday 9:00 a.m. to 5:00 p.m. 2. The [facility] [employer] accepts prescription medications (in pill form only) for disposal year round. Call for more information. 3. Contact the [facility] for the next [facility] sponsored prescription drug collection event. , [phone], or [phone]; Note that many narcotic pain relievers also contain Tylenol/acetaminophen. Please ensure that your total dose of acetaminophen from all sources does not exceed 3 g (3000 mg) per day. Forms: PCP List Discharge Date/Time: 02/07/23 07:12
[2023-02-07 05:10] LABS: ALBUMIN 4.2 g/dL (3.2-5.5); ALBUMIN/GLOBULIN RATIO 1.6 (1.0-2.2); BILIRUBIN,TOTAL 0.2 mg/dL (0.2-1.0); CALCIUM 9.4 mg/dL (8.5-10.3); CREATININE 0.9 mg/dL (0.6-1.3); POTASSIUM 3.9 mmol/L (3.5-4.5); TOTAL PROTEIN 6.9 g/dL (6.4-8.9)
[2023-02-07] MEDS ORDERED: MORPHINE 2 MG/ML CARPUJECT IVP STA (05:34)
[2023-02-07] MEDS ORDERED: SODIUM CHLORIDE 0.9% 1,000 ML IV STA (05:34)
[2023-02-07] MEDS ORDERED: ONDANSETRON 4 MG/2 ML VIAL IVP STA (05:34)
[2023-02-07 05:52] LABS: BILIRUBIN,URINE NEGATIVE (NEGATIVE); GLUCOSE, URINE (UA) NEGATIVE (NEGATIVE); KETONES,URINE (UA) NEGATIVE (NEGATIVE); LEUKOCYTE ESTERASE, URINE NEGATIVE (NEGATIVE); NITRITE,URINE NEGATIVE (NEGATIVE); OCCULT BLOOD,URINE MODERATE (NEGATIVE); PH,URINE 5.5 PH (5.0-7.5); PROTEIN,URINE NEGATIVE (NEGATIVE); UROBILINOGEN,URINE 0.2 (NORMAL) E.U./dL (NORMAL)
[2023-02-07 05:54] LABS: CLARITY,URINE CLEAR (CLEAR)
[2023-02-07 05:59] LABS: BACTERIA,URINE None Seen /HPF (None Seen); RBC,URINE 0-5 /HPF (0-5); SQUAMOUS EPITHELIAL CELL,UR RARE Squamous (<= Few); WBC,URINE 0-3 /HPF (0-3)
[2023-02-07] MEDS ORDERED: iohexoL-300 100 ML VIAL IVP ONE (06:41)
[2023-02-07] MEDS ORDERED: oxyCODONE 5 MG TABLET PO STA (06:51)
[2023-02-07 07:18] VITALS: BP 134/93; O2SAT 98
--- NOTE | 2023-02-07 07:40 | XRAY Report ---
PROCEDURE: Chest 1 View X-Ray INDICATIONS: R sided pain TECHNIQUE: One view of the chest was acquired. COMPARISON: Chest x-ray, 07/02/2022. FINDINGS: Surgical changes and devices: None. Lungs and pleura: Shallow inspiration. No pleural effusions or pneumothorax. Lungs are clear. Mediastinum: Mediastinal contours appear normal. Heart size is normal. Bones and chest wall: No suspicious bony lesions. Overlying soft tissues appear unremarkable. IMPRESSION: No acute cardiopulmonary process. Findings are concordant with preliminary interpretation provided by [facility]. Reviewed by: Lorenza Tate MD on 02/07/2023 7:39 AM PDT Approved by: Lorenza Tate MD on 02/07/2023 7:39 AM PDT Station ID: [id number]
--- NOTE | 2023-02-07 10:17 | CT Report ---
PROCEDURE: ABDOMEN/PELVIS W INDICATIONS: R sided abd pain CONTRAST: Omni 300 100ml TECHNIQUE: After the administration of IV contrast, 5 mm thick sections acquired from the diaphragms to the symp hysis. 5 mm thick coronal and sagittal reformats were acquired. For radiation dose reduction, the f ollowing was used: automated exposure control, adjustment of mA and/or kV according to patient size. COMPARISON: None. FINDINGS: Image quality: Excellent. Lung bases and heart: Unremarkable. Liver: Normal size. No solid mass. Mild hepatic steatosis. Gallbladder and biliary tree: Normal gallbladder. No biliary dilation. Spleen: No splenomegaly. Pancreas: No pancreatic ductal dilation. Adrenals: No adrenal nodule. Kidneys and ureters: No hydronephrosis. No renal cystic lesion which requires follow up. No solid mas s. Bowel and peritoneum: Stomach is mildly distended with an air-fluid level. No bowel distension. Appe ndix is normal. Fluid in the small intestine is seen, nonspecific. No pathologic free fluid. Lymph nodes: No central or retroperitoneal adenopathy. Vessels: No infrarenal aortic aneurysm. PELVIS Reproductive organs: Unremarkable. Bladder: No abnormal wall thickening, accounting for underdistension. Pelvic lymph nodes: No pelvic adenopathy by size criteria. Bones: No aggressive osseous abnormality. Other: No significant ventral or inguinal hernia. IMPRESSION: 1. Normal appendix. 2. On distended stomach with an air-fluid level. Small bowel loops are normal in caliber and filled w ith fluid. The CT findings are nonspecific and suggest gastroenteritis. Recommend clinical correlatio n. 3. Hepatic steatosis. No significant discrepancy with the preliminary interpretation. Reviewed by: Lorenza Tate MD on 02/07/2023 10:16 AM PDT Approved by: Lorenza Tate MD on 02/07/2023 10:16 AM PDT Station ID: [id number]
== END 2023-02-07 07:12 | disposition home or self-care (01) ==
LOC: ED 04:21
DX: R10.9 Unspecified abdominal pain (principal); F17.200 Nicotine dependence, unspecified, uncomplicated
CPT/HCPCS: 36415; 71045; 74177; 80053; 81001; 83690; 85025; 93005; 96374; 96375; 99284; 99285; A9270; Q9967; 81003; 87086

== ENCOUNTER 2023-03-05 12:56 | Outpatient (CLI) | payer OTHER ==
--- NOTE | 2023-03-05 13:40 | SLEEP CARE CONSULTATION ---
Information from patient questionnaire entered by Fab Celis. I have reviewed and concur with the information entered by Fab Celis. This document represents the service I personally performed and the decisions made by me, Major Del Valle MD, [facility]. History of Present Illness Service Date and Time: 03/05/2023 1256 Reason for Visit: New patient Chief Complaint: reports: Snoring, Observed pauses in breathing, Fatigue, Frequent awakenings at night Date of Onset: MORE THAN 5 YRS Usual bedtime: 12AM Time it takes to fall asleep: 1-2 HRS Snores at night: Yes Observed to quit breathing while asleep: Yes Sleeps alone due to snoring: No Number of times waking at night: 2-3 Reasons for waking at night: reports: Other (UNKNOWN) Toss, Turn, or Twitch while sleeping: Yes Recalls having dreams: Yes Usually gets out of bed at: 7AM Feels refreshed in the morning: No Morning headache: No Sleepy or fatigued during the day: Yes Ever fallen asleep while driving: No Takes day naps: Yes Dreams during day naps: Yes Prior sleep studies: No Additional HPI information: I had the pleasure of seeing Mr. Weathers along with his today regarding the possibility of him having a sleep disorder. As you know, he is a 32-year-old gentleman who complains of loud snore, observed apneas, frequent awakenings, and persistent fatigue for the past 5 years. The patient tells me that he normally goes to bed around 9 pm, and it takes him approximately 1 2 hours to fall asleep. He takes [id number] sleep aids. He has not been told that he snores loudly and irregularly at night. He has also never been observed to stop breathing in his sleep. His can still sleep in the same bed. He can recall waking up on the average of 2 - 3 times during the night. Most of the time he wakes up because of unknown reason. He has awakened occasionally because of his own snoring, choking, and having to gasp for air. There is a lot of tossing and turning in his sleep. He reports having somniloquy (sleep talking) but not somnambulism (sleep walking). Generally, he can recall having dreams. In the morning he usually gets up out of the bed around 7 a.m. (8-9 am on his days off) not feeling refreshed nor rested. He usually does not have a morning headache. During the day he complains of feeling sleepy and fatigued. His score on [place] Sleepiness Scale is 13 out of 24. He never has fallen asleep while driving nor has had any accident due to sleepiness. He reports having impaired concentration during the day. 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 Patient is and lives in [place]. Have you smoked in the past 12 months: Yes Cigarettes per day (20/pack): 4 Years of smokin Smoking Pack Years: 4.6 Alcohol use: No Caffeine use: No Family History Family history of sleep disordered breathing: Yes Family Hx Sleep Apnea: Mother: Snoring, Sleep apnea - Treated, Father: Snoring, Sleep apnea - Treated, Sibling: Snoring, Sleep apnea - Treated, Grandparent: Snoring, Sleep apnea - Treated Allergies and Home Medications Known drug allergies: No Drug allergies reviewed: Yes Home medication list reviewed: Yes Allergy and home medication list: Allergies No Known Drug Allergies Allergy (Verified 03/02/23 15:39) Review of Systems Weight gain over past 5 years: 30 Cardiovascular: denies: high blood pressure, palpitations, chest pain, irregular heart rate or pulse, leg or foot swelling, have to sleep sitting up, other Respiratory: reports: shortness of breath Gastrointestinal: denies: heartburn, difficulty swallowing, nausea, vomitting, diarrhea, abdominal pain, other Urinary: denies: incontinence, frequency, urgency, impotence, other Neurological: denies: headaches, seizure, head trauma, disorientation, speech dysfunction, gait or balance problems, fainting or unconsciousness, other Psychiatric: reports: Attention Deficit Hyperactivity, anxiety, depression, other (PTSD) Ear/Nose/Throat: reports: injury to nose Endocrine: denies: thyroid disease, history of goiter, sluggishness, too hot or cold, excessive thirst, increased appetite, increased urination, unexplained weakness, other Musculoskeletal: reports: joint pain, back pain, muscle pain or cramping Immunologic: denies: sneezing, rash, itching, allergies to food or environment, other Physical Exam Vital signs obtained and entered by: FAB Osorio MA Blood Pressure: 100/62 (LEFT ARM) Cuff size: regular Heart Rate: 69 O2 Saturation: 97 Height: 5 ft 9 in Weight: 190 lb 6.4 oz Body Mass Index: 28.0 BMI Classification: Overweight Neck circumference: 15.25 Mood/affect: Normal HEENT: No craniofacial malformation Nostrils: partially obstructed (left) Turbinates: normal Septum: deviated left Mouth and throat: narrow oropharynx Soft palate: long Hard palate: normal Uvula: normal Uvula visualization: 50% Mallampati Class II Tongue: normal in size Tonsils: small Chin and jaw: normal size and position Neck: normal w/o lymphadenopathy or thyromegaly Heart: regular rate and rhythm Lungs: clear bilaterally Extremities: no edema or clubbing Neurologic: intact Impression and Plan IMPRESSION: 1. Obstructive Sleep Apnea-Hypopnea Syndrome, as suggested by history of loud and irregular snoring, observed cessation of breath while asleep, frequent awakenings during the night, unrefreshed sleep, cognitive impairment, and daytime hypersomnolence. I recommend proceeding to polysomnography to confirm the diagnosis and to assess severity. If he has significant sleep disordered breathing, a manual CPAP titration study will also be performed to find the optimal treatment pressure. I informed the patient of what the sleep studies involve and after some discussion, he agreed to proceed. 2. Insomnia, due to excessive time spent in bed of about 10 hours (9pm 7am). He was instructed to delay his bedtime to 11 pm and do not get out of bed any later than 7 am. Plan: 1. Schedule polysomnography + manual CPAP titration study and return in 1 to 2 weeks after the study to discuss result and initiate therapy. 2. Avoid long distance driving or when feeling sleepy. 3. Avoid alcohol, sedatives and muscle relaxants around bedtime. 4. Maintain a regular wake up time and spend no more than 8 hours in bed at night. Avoid naps. Follow up with Sleep Care in: 1-2 months Visit Type: In Office Other Participants: Spouse/Significant Other Time Spent with Patient (minutes): 15 Provider Statement: I spent 100% of the Face to Face Visit with the patient with greater than 50% spent counseling the patient and coordination of care.
[2023-03-05 13:43] VITALS: BP 100/62; O2SAT 97
== END 2023-03-05 12:57 | disposition home or self-care (01) ==
LOC: SC 12:56
PROVIDERS: ATTEND Internal Medicine Pulmonary Disease
DX: R06.83 Snoring (principal); G47.8 Other sleep disorders; R06.81 Apnea, not elsewhere classified; F51.04 Psychophysiologic insomnia; R41.89 Other symptoms and signs involving cognitive functions and awareness; G47.10 Hypersomnia, unspecified; R53.83 Other fatigue; F17.210 Nicotine dependence, cigarettes, uncomplicated; E66.3 Overweight; Z68.28 Body mass index [BMI] 28.0-28.9, adult
CPT/HCPCS: 99202; 99212

== ENCOUNTER 2023-06-11 19:35 | Outpatient (CLI) | payer OTHER | END 2023-06-11 19:36 | disposition home or self-care (01) | LOC: SC 19:35 | PROVIDERS: ATTEND Internal Medicine Pulmonary Disease | DX: G47.61 Periodic limb movement disorder (principal) | CPT/HCPCS: 95810 ==

== ENCOUNTER 2023-07-04 10:15 | Outpatient (CLI) | payer OTHER ==
--- NOTE | 2023-07-04 11:59 | XRAY Report ---
PROCEDURE: Foot 3+V RT INDICATIONS: RIGHT FOOT PAIN. Big toe pain following injury. TECHNIQUE: 3 views of the foot were acquired. COMPARISON: None. FINDINGS: Bones: No fractures or dislocations. No suspicious bony lesions. Soft tissues: No suspicious soft tissue calcifications or masses. IMPRESSION: No acute bony abnormality. Reviewed by: Kevin Kelly MD on 07/04/2023 11:58 AM [facility] Approved by: Kevin Kelly MD on 07/04/2023 11:58 AM [facility] Station ID: [id number]
== END 2023-07-04 10:30 | disposition home or self-care (01) ==
LOC: DI.N 10:15
PROVIDERS: ATTEND Family Medicine
DX: M79.671 Pain in right foot (principal)

== ENCOUNTER 2023-07-04 12:28 | Emergency (ER) | payer OTHER ==
--- NOTE | 2023-07-04 13:01 | XRAY Report ---
PROCEDURE: Foot 3+V RT INDICATIONS: Trauma TECHNIQUE: 3 views of the foot were acquired. COMPARISON: None. FINDINGS: Bones: No fractures or dislocations. No suspicious bony lesions. Soft tissues: No suspicious soft tissue calcifications or masses. IMPRESSION: No acute fracture. No osseous lesion. If symptoms and/or clinical suspicion for pathology continue, f urther assessment with repeat plain films, or advanced imaging (e.g., CT, MRI, or bone scan) is recom mended for further assessment. Reviewed by: Benji Bailey MD on 07/04/2023 12:59 PM PST Approved by: Benji Bailey MD on 07/04/2023 12:59 PM PST Station ID: [id number]
--- NOTE | 2023-07-04 13:32 | ED Physician Documentation ---
PD HPI LOWER EXT INJURY - Stated complaint Stated Complaint: RT TOE INJ - Chief complaint Chief Complaint: Trauma Ext - History obtained from History obtained from: Patient - Additional information Additional information: Patient is a 33-year-old male with no significant past medical history presenting for evaluation of right toe pain that occurred in the early hours this morning while he was jaclyn. Patient states that he stood up and hit his foot against something also was in the room. He did not hit his head or have LOC. He has pain with ambulation. Denies prior injuries to the site. He works in housekeeping and maintenance. Review of Systems Musculoskeletal: reports: Extremity pain Neurologic: denies: Head injury PD PAST MEDICAL HISTORY - Past Medical History Past Medical History: No Cardiovascular: None Respiratory: None Neuro: None Endocrine/Autoimmune: None GI: None : None HEENT: None Psych: None Musculoskeletal: None Derm: None - Past Surgical History Past Surgical History: Yes Ortho: Other HEENT: Rhinoplasty - Present Medications Home Medications: Ambulatory Orders Medication Instructions Recorded Confirmed buPROPion [Wellbutrin Xl] 300 mg PO DAILY 07/04/23 07/04/23 - Allergies Allergies/Adverse Reactions: Allergies Allergy/AdvReac Type Severity Reaction Status Date / Time No Known Drug Allergies Allergy Verified 07/04/23 12:41 - Social History Does the pt smoke?: Yes Smoking Status: Current every day smoker Does the pt drink ETOH?: No Does the pt have substance abuse?: No - Immunizations Immunizations are current?: Yes - POLST Patient has POLST: No PD ED PE NORMAL - General General: Alert and oriented X 3, No acute distress, Well developed/nourished - HEENT HEENT: Atraumatic - Cardiac Cardiac: Strong equal pulses - Respiratory Respiratory: No respiratory distress - Extremities Extremities: Other (Tenderness to right great toe And along first metatarsal, no tenderness at the base of the metatarsal, no ankle tenderness or swelling, strong pedal pulses, motor and sensation grossly intact) Results - Vitals Vitals: Vital Signs - 24 hr 07/04/23 07/04/23 12:37 13:55 Temperature 37.1 C Heart Rate 73 60 Respiratory 15 16 Rate Blood Pressure 128/78 130/81 H O2 Saturation 99 100 Oxygen O2 Source Room air PD Medical Decision Making - ED course Complexity details: reviewed results, d/w patient ED course: Patient is a 33-year-old presenting for evaluation of right foot injury. On review of the x-ray I see no fracture or dislocation. Neurovascular intact with no signs of open wounds. Patient was given a postop shoe and crutches.He was counseled on continued supportive care as well as need for follow-up if symptoms or not improving. Usual return precautions given. Departure - Departure Disposition: 01 Home, Self Care Clinical Impression: Right foot injury Condition: Stable Instructions: ED Sprain Foot Comments: Your x-ray does not show signs of any fractures. You may have a bruise or sprain to the foot causing your pain. Continue with the postop shoe and crutches to stay off the foot as long as it is hurting to put weight on it. I would expect your symptoms to get better over the course of the next week. Continue with ice, anti-inflammatories, elevation. I would recommend close follow-up with her primary care provider. If your symptoms or not getting better then you may need further testing such as another x-ray or MRI. IMPRESSION: No acute fracture. No osseous lesion. If symptoms and/or clinical suspicion for pathology continue, further assessment with repeat plain films, or advanced imaging (e.g., CT, MRI, or bone scan) is recommended for further assessment. Forms: PCP List, Activity restrictions Discharge Date/Time: 07/04/23 13:56
[2023-07-04 14:00] VITALS: BP 130/81; O2SAT 100
== END 2023-07-04 13:56 | disposition home or self-care (01) ==
LOC: ED 12:28
DX: S99.921A Unspecified injury of right foot, initial encounter (principal); W22.8XXA Striking against or struck by other objects, initial encounter; M79.671 Pain in right foot; F17.200 Nicotine dependence, unspecified, uncomplicated
CPT/HCPCS: 99283

== ENCOUNTER 2023-07-10 09:02 | Outpatient (CLI) | payer OTHER ==
--- NOTE | 2023-07-10 09:39 | Sleep Patient Instructions ---
Sleep Center Visit Summary - Patient Visit Information Reason for Visit: Sleep study followup - Patient Instructions Instructions Attached: Snoring Tips Prevent Additional Instructions: Your sleep study today was negative for significant sleep disordered breathing. However, you did have elevated respiratory episodes when sleeping on your back. You should avoid sleeping on your back to control these respiratory episodes. You were found to have episodes of snoring. There are different ways to control snoring including weight loss, oral devices made by a dentist or surgical options through ENT specialist. You should not use oral devices that do not fit properly because they can affect your bite. You should also check insurance coverage of oral devices for snoring because they may not be cover well. You may obtain a referral to an ENT specialist through your primary provider. Follow-up as needed. - Clinic Information Contact: [facility] [address] [place] [address] [email or web address] T: [phone]
--- NOTE | 2023-07-10 09:41 | SLEEP CARE CONSULTATION ---
Information from patient questionnaire entered by Kimberley Celis. I have reviewed and concur with the information entered by Kimberley Celis. This document represents the service I personally performed and the decisions made by , Tamra Fox ARNP. History of Present Illness Service Date and Time: 07/10/2023901 Initial [place] Sleepiness Scale score: 13 (02/05/23) Current [place] Sleepiness Scale score: 14 Additional HPI information: LESLI TAY returns for follow up and results of the recently performed polysomnography. The patient was informed of the following findings: No significant sleep disordered breathing with an average AHI of 1 and sanchez oxygen saturation of 92%. He had an elevated supine AHI at 9.1 and moderate PLMs not contributing to sleep fragmentation. I explained the pathophysiology behind obstructive sleep apnea. Patient does not have sleep apnea and was advised how weight gain could increase the risk of developing sleep apnea in the future. I strongly encouraged the patient to lose weight. Patient does not have significant sleep disordered breathing but has elevated AHI in supine position so advised positional therapy. Methods to achieve positional management therapy were discussed; such as, positioning with pillows, wearing a T-shirt with tennis balls sewn into the back or commercially available products. Patient has mild snoring. Snoring can be reduced by weight loss. Weight loss is best achieved with diet consult. Patient instructed to contact PCP for referral. Snoring can also be treated with an oral appliance from a dentist. Advised to check insurance coverage. In addition, an ENT evaluation can be do to see if other treatment is indicated. Patient does not drink alcohol. Patient was cautioned about risks of drowsy driving until sleepiness symptoms resolve. Patient denies drowsy driving. Sleep Study - Results Type of Sleep Study: Polysomnography (COMPLETED 06/11/23) Prior sleep studies: No Polysomnography/Home Sleep Study results: IMPRESSION: The quality of the study is good. The patient had minimally reduced sleep efficiency. The sleep architecture was abnormal for sleep fragmentation and reduced amount of time spent in slow wave sleep (N3). Respiratory monitoring showed no significant sleep disordered breathing (AHI = 1.0) or hypoxia (sanchez oxygen saturation of 92%). The few respiratory events occurred almost exclusively during supine sleep (supine AHI = 9.1; non-supine = 0.18). Snore was infrequent and light in intensity. There was moderate periodic leg movement of sleep not contributing to the sleep fragmentation. Cardiac rhythm was normal sinus rhythm without significant arrhythmia. No abnormal behavior (parasomnia) observed during the night. CONCLUSIONS and RECOMMENDATIONS: 1. Periodic leg movement (ICD G47.61), moderate, treatment may be indicated. Clinical correlation advised. 2. Because the supine AHI was elevated at 9.0, the patient should avoid sleeping supine. Allergies and Home Medications Known drug allergies: No Drug allergies reviewed: Yes Home medication list reviewed: Yes (no changes) Allergy and home medication list: Allergies No Known Drug Allergies Allergy (Verified 07/06/23 09:49) Review of Systems Review of systems same as previous: Yes (no changes) Physical Exam Vital signs obtained and entered by: ARACELI ARMANDO Blood Pressure: 99/61 Cuff size: wrist (right) Heart Rate: 73 O2 Saturation: 96 Height: 5 ft 9 in Weight: 194 lb 3.2 oz Body Mass Index: 28.6 BMI Classification: Overweight Impression and Plan 1. Snoring but no significant sleep disordered breathing. However his supine AHI was elevated and he should avoid sleeping supine. Patient advised that often weight loss will reduce snoring as well as apnea risk. An oral appliance can also be used for snoring. This would require a dental consultation. Patient cautioned not to use other online appliances as can cause bite issues. Patient is advised to check if insurance will cover. An ENT consult can also be helpful to determine if any other treatment is an option. 2. Periodic limb movement, moderate, that did not fragment patients sleep. Periodic limb movement of sleep (PLMS) is characterized by episodes of repetitive limb movements that occur during sleep and usually involve the lower limbs. The etiology is unknown. Sleep hygiene methods can also improve sleep as well as lifestyle changes such as regular exercise. Patient was advised that no treatment is needed at this time. If symptoms increase, then further evaluation is indicated. 3. Overweight, unspecified. Currently patients BMI is 28.6. Obesity increases the risk of apnea, CPAP pressure requirements and overall health risks especially cardiovascular and diabetes. Thus patient is advised to continue to try to lose weight. * Avoid sleeping supine * Attempt to lose weight * Avoid alcohol consumption near bedtime * The patient is cautioned about driving until sleepiness is completely resolved. * Return as needed for follow up. Counseling Topics: Weight loss health impact Follow up with Sleep Care in: as needed Visit Type: In Office Time Spent with Patient (minutes): 14 Provider Statement: I spent 100% of the Face to Face Visit with the patient with greater than 50% spent counseling the patient and coordination of care.
[2023-07-10 09:48] VITALS: BP 99/61; O2SAT 96
== END 2023-07-10 09:03 | disposition home or self-care (01) ==
LOC: SC 09:02
PROVIDERS: ATTEND Nurse Practitioner Family
DX: R06.83 Snoring (principal); G47.61 Periodic limb movement disorder; E66.3 Overweight; Z68.28 Body mass index [BMI] 28.0-28.9, adult
CPT/HCPCS: 99212

== ENCOUNTER 2023-10-23 09:39 | Outpatient (CLI) | payer OTHER ==
--- NOTE | 2023-10-23 15:09 | MRI Report ---
PROCEDURE: Lumbar Spine WO INDICATIONS: LOW BACK PAIN TECHNIQUE: Noncontrast sagittal T1 spin echo and T2 fast echo, sagittal STIR, axial T1 and T2 fast spin echo thr ough the lumbar spine. In cases with scoliosis, additional coronal T2 fast spin echo may be performe d. COMPARISON: 12/29/2022 FINDINGS: Image quality: Excellent. Alignment and Curvature: There is normal bony alignment. Bone Marrow: Marrow is of normal overall signal. No acute vertebral body compression fractures. Spinal Cord: Conus medullaris terminates at the L1 level. Visualized cord demonstrates normal signa l and size. Paraspinous Soft Tissues: No paravertebral masses. T12-L1: Normal in appearance. L1-L2: Normal in appearance. L2-L3: Normal in appearance. L3-L4: Normal in appearance. L4-L5: Normal in appearance. L5-S1: Normal in appearance. IMPRESSION: No significant abnormality of the lumbar spine can be seen. No significant change from the prior. Reviewed by: Jassi Lino MD on 10/23/2023 2:08 PM [facility] Approved by: Jassi Lino MD on 10/23/2023 2:08 PM [facility] Station ID: [id number]
== END 2023-10-23 09:40 | disposition home or self-care (01) ==
LOC: DI 09:39
PROVIDERS: ATTEND Nurse Practitioner Family
DX: M54.50 Low back pain, unspecified (principal)

== ENCOUNTER 2023-11-06 14:17 | Emergency (ER) | payer OTHER ==
[2023-11-06 14:49] VITALS: BP 128/87; O2SAT 99
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
--- NOTE | 2023-11-06 16:00 | XRAY Report ---
PROCEDURE: Hand 3+V RT INDICATIONS: Trauma TECHNIQUE: 3 views of the hand(s) acquired. COMPARISON: None. FINDINGS: Bones: No fractures or dislocations. Chronic appearing fracture deformity of the distal fifth metaca rpal. No suspicious bony lesions. Soft tissues: No suspicious soft tissue calcifications or masses. IMPRESSION: Chronic appearing fracture deformity of the distal fifth metacarpal. No acute fractures are seen. Reviewed by: Cheo Huffman MD on 11/06/2023 3:59 PM PDT Approved by: Cheo Huffman MD on 11/06/2023 3:59 PM PDT Station ID: [id number]
== END 2023-11-06 16:26 | disposition home or self-care (01) ==
LOC: ED 14:17
DX: S69.91XA Unspecified injury of right wrist, hand and finger(s), initial encounter (principal); M79.641 Pain in right hand; W08.XXXA Fall from other furniture, initial encounter; Y99.0 Civilian activity done for income or pay; F17.200 Nicotine dependence, unspecified, uncomplicated; Z79.899 Other long term (current) drug therapy
CPT/HCPCS: 1040M; 73130; 99283; 99284